=== PATIENT | female | born 1980 | race Caucasian/White ===

== ENCOUNTER 2017-09-11 14:26 | Emergency (ER) | payer OTHER ==
[~2017-09-11] VITALS: Ht 157.5 cm; Wt 97.5 kg
[2017-09-11] MEDS ORDERED: KEPPRA 500 MG500 M1 PO (14:48)
[2017-09-11] MEDS ORDERED: QSYMIA 11.25 M1 EACH PO (14:49)
[2017-09-11] MEDS ORDERED: SYNTHROID100 MCG PO (14:49)
[2017-09-11 16:26] LABS: CALCIUM 8.4 mg/dL (8.5-10.1); CREATININE 0.9 mg/dL (0.6-1.3); POTASSIUM 3.2 mmol/L (3.5-5.1)
[2017-09-11 16:30] LABS: MAGNESIUM 1.8 mg/dL (1.8-2.4)
[2017-09-11 16:48] VITALS: BP 149/98
== END 2017-09-11 16:49 | disposition home or self-care (01) ==
LOC: M.ERS 14:26
PROVIDERS: Physician Assistant
DX: M79.1 Myalgia (principal); E87.6 Hypokalemia; J45.909 Unspecified asthma, uncomplicated; Z88.5 Allergy status to narcotic agent